=== PATIENT | male | born 1945 | race Caucasian/White ===

== ENCOUNTER 2017-01-01 19:24 | Emergency (ER) | payer BC, MEDICARE ==
[~2017-01-01] VITALS: Ht 165.1 cm; Wt 73.5 kg
[~2017-01-01 19:24] MED LIST: MOBIC7.5 MG PO; PRINIVIL20 MG PO
[2017-01-02] MEDS ORDERED: PRILOSEC20 MG PO (03:46)
[2017-01-02] MEDS ORDERED: CIALIS2.5 MG PO (03:46)
== END 2017-01-01 20:02 | disposition short-term general hospital (02) ==
LOC: ER 19:24
PROC: 0HQ0XZZ Repair Scalp Skin, External Approach (ICD-10-PCS; principal; 2017-01-01)
DX: S01.01XA Laceration without foreign body of scalp, initial encounter (principal); Z79.899 Other long term (current) drug therapy; Z91.012 Allergy to eggs; W22.8XXA Striking against or struck by other objects, initial encounter